=== PATIENT | female | born 1980 | race Two or more races ===

== ENCOUNTER 2020-04-13 10:53 | Emergency (ER) | payer BC ==
[~2020-04-13] VITALS: Ht 167.6 cm; Wt 90.0 kg
--- NOTE | 2020-04-13 11:24 | PHYS DOC ---
General Adult EDM: Chief Complaint: EYE PROBLEMS HPI: HPI: Patient is a 39 year old FEMALE who presents with right eye irritations since last night. Patient primary language is Swahili, does not speak any [place]an, facility phone general operations agent service used for HPI and physical examination. Patient reports right eye irritation that started last night, does not recall getting any foreign bodies into her eye, or any chemical exposures to her eye. Reports that the light hurts her eyes. Patient does not wear glasses or contacts. Patient states she does not have any drug allergies, states her only surgical history is an appendectomy when she was a young child, takes no medications, is generally healthy. Patient denies any exposure or concerns of the COVID-19 virus. Patient denies any fever or chills, nasal congestion, cough or shortness of breath. Patient denies any chest pain, any abdominal pain, nausea, vomiting, diarrhea. Patient denies any problems urinating. Patient denies back pain or pain in her joints. Is any skin rashes. Patient denies headaches, focal weaknesses, or sensory changes. Patient denies any swelling of her glands. Patient denies any recent depressions, anxieties, homicidal suicidal ideations. Review of Systems: Review of Systems: Constitutional: Denies fever or chills. Patient denies any exposure to her concerns of the COVID-19 virus. Eyes: Denies change in visual acuity. Reports right eye irritation, denies problems with left eye, reports the light hurts her eyes. HENT: Denies nasal congestion or sore throat. Respiratory: Denies cough or shortness of breath. Cardiovascular: Denies chest pain or edema. GI: Denies abdominal pain, nausea, vomiting, bloody stools or diarrhea. : Denies dysuria. Musculoskeletal: Denies back pain or joint pain. Integument: Denies rash. Neurologic: Denies headache, focal weakness or sensory changes. Endocrine: Denies polyuria or polydipsia. Lymphatic: Denies swollen glands. Psychiatric: Denies depression or anxiety. Denies homicidal or suicidal ideation. Heart Score: Risk Factors: Risk Factors: DM, Current or recent (<one month) smoker, HTN, HLP, family history of CAD, obesity. Risk Scores: Score 0 - 3: 2.5% MACE over next 6 weeks - Discharge Home Score 4 - 6: 20.3% MACE over next 6 weeks - Admit for Clinical Observation Score 7 - 10: 72.7% MACE over next 6 weeks - Early Invasive Strategies Family History: Family History: Patient reports both her mother and father are healthy. Current Medications: Patient states she does not take any prescription medications at home. Allergies: Allergies: Patient denies allergies to medications. Physical Exam: PE: Constitutional: Well developed, well nourished, no acute distress, non-toxic appearance. [] HENT: Normocephalic, atraumatic, bilateral external ears normal, oropharynx moist, no oral exudates, nose normal. [] Eyes: PERRLA, EOMI, conjunctiva normal, no discharge. [] Neck: Normal range of motion, no tenderness, supple, no stridor. [] Cardiovascular:Heart rate regular rhythm, no murmur [] Lungs & Thorax: Bilateral breath sounds clear to auscultation [] Abdomen: Bowel sounds normal, soft, no tenderness, no masses, no pulsatile masses. [] Skin: Warm, dry, no erythema, no rash. [] Back: No tenderness, no CVA tenderness. [] Extremities: No tenderness, no cyanosis, no clubbing, ROM intact, no edema. [] Neurologic: Alert and oriented X 3, normal motor function, normal sensory function, no focal deficits noted. [] Psychologic: Affect normal, judgement normal, mood normal. [] EKG: EKG: [] Radiology/Procedures: Radiology/Procedures: [] Course & Med Decision Making: Course & Med Decision Making Pertinent Labs and Imaging studies reviewed. (See chart for details) 39-year-old female patient speaks Swahili. Discharge instructions were reviewed with patient using facility general operations agent service. Patient had come to the emergency department complaining of her right thigh being reddened irritated and watering since last night. Examination of eye revealed a corneal abrasion at approximately 8:00 of the right eye iris most outer edge measuring approximately 2 mm by less than 0.5 mm, no foreign bodies noted during exam. No other abnormalities noted of the eye. No scleral edema. No abnormalities noted upon retinal exam. Visual acuity by nursing staff as follows: OD 20/40, OS 20/20, OU 20/20. Discussed with patient need to start antibiotic ointment, and to follow-up with ophthalmology this week. Patient's first dose of erythromycin ointment was given in the ER to instruct patient how to apply antibiotic ointment to eye. Patient's intraocular pressure were measured with facility Joe-Pen, noting each eye at 14 mmHg. Patient gave verbal understanding of home care, return to ER concerns and precautions, to follow-up with shuttle inspector soon, and use of antibiotic ointment and eye. Patient had no further questions or concerns, patient discharged home. Dragon Disclaimer: Dragon Disclaimer: This electronic medical record was generated, in whole or in part, using a voice recognition dictation system. Departure Departure Impression: Primary Impression: Corneal abrasion, right Qualified Codes: S05.01XA - Injury of conjunctiva and corneal abrasion without foreign body, right eye, initial encounter Disposition: HOME, SELF-CARE Condition: GOOD Referrals: NO PCP (PCP) Isabell TYLER MD Patient Instructions: Eye - Corneal Abrasion Additional Instructions: Please apply the antibiotic ointment to the right eye 4 times a day for the next 5 days, please follow-up with the eye doctor this week, preferably by Monday. Please return to emergency department for increased eye pain, or decreased vision, or other concerns. Scripts Hydrocodone/Apap 5-325 (NORCO 5-325 TABLET) 1 Each Tablet 1 TAB PO PRN Q6HRS PRN for PAIN, #10 TAB 0 Refills Prov: MARI PHILIP APRN 04/13/20 Ibuprofen (IBUPROFEN) 600 Mg Tablet 600 MG PO PRN Q6HRS PRN for INFLAMMATION, #14 TAB 0 Refills Prov: MARI PHILIP APRN 04/13/20 Erythromycin Base (Erythromycin) 1 Gm Oint...g. 1 GM OP QID for CORNEAL ABRASION, #1 MISC 0 Refills APPLY A 0.5 INCH RIBBON TO INNER LOWER EYELID 4 TIMES A DAY FOR THE NEXT 5 DAYS. Prov: MARI PHILIP APRN 04/13/20 Justicifation of Admission Dx: Justifications for Admission: Justification of Admission Dx: N/A MARI PHILIP APRN Apr 13, 2020 11:24
[2020-04-13] MEDS ORDERED: FLUORESCEIN OPHTH TEST STRIP. OD ONE (11:30)
[2020-04-13] MEDS ORDERED: TETRACAINE 0.5% OPHTH SOLUTION 4ML BOTTLE. OD ONE (11:30)
[2020-04-13] MEDS ORDERED: EYE-STREAM OPHTH SOLUTION 120 ML BOTTLE. OD ONE (11:45)
[2020-04-13] MEDS ORDERED: ERYTHROMYCIN 0.5% OPHTH OINTMENT 1GM TUBE. OD ONE (12:00)
[2020-04-13] MEDS ORDERED: IBUP-1007 PO (12:25)
[2020-04-13] MEDS ORDERED: ERYT1OIN6 OP (12:25)
[2020-04-13] MEDS ORDERED: HYDR-3164 PO (12:25)
[2020-04-13 12:34] VITALS: BP 155/103
[2020-04-13] MEDS ORDERED: HYDROcodone/APAP 5/325MG 1 TAB TABLET PO ONE (12:45)
== END 2020-04-13 12:45 | disposition home or self-care (01) ==
LOC: ER 10:53
DX: S05.01XA Injury of conjunctiva and corneal abrasion without foreign body, right eye, initial encounter (principal); X58.XXXA Exposure to other specified factors, initial encounter; Y93.89 Activity, other specified; Y92.89 Other specified places as the place of occurrence of the external cause; Y99.8 Other external cause status
CPT/HCPCS: 99283

== ENCOUNTER 2020-07-16 22:24 | Emergency (ER) | payer BC ==
[~2020-07-16] VITALS: Ht 165.1 cm; Wt 48.0 kg
[~2020-07-16 22:24] MED LIST: ERYT1OIN6 OP; HYDR-3164 PO; IBUP-1007 PO
[2020-07-16 23:46] VITALS: BP 164/97
[2020-07-16 23:46] LABS: COLOR,URINE RED
[2020-07-16 23:49] LABS: CLARITY,URINE BLOODY
[2020-07-16 23:50] LABS: RBC,URINE TNTC /HPF (0-2)
[2020-07-16 23:51] LABS: BACTERIA,URINE 0 /HPF (0-FEW); WBC,URINE 20-40 /HPF (0-4)
[2020-07-17] MEDS ORDERED: PHEN-318 PO (00:05)
[2020-07-17] MEDS ORDERED: NITR100C62 PO (00:05)
--- NOTE | 2020-07-17 00:06 | PHYS DOC ---
Past Medical History Past Medical History: No Pertinent History Past Surgical History: Appendectomy Smoking Status: Never Smoker Alcohol Use: None General Adult EDM: Chief Complaint: ABDOMINAL PAIN HPI: HPI: Patient is a 40 year old [female who is currently on her menstrual cycle presents with a chief complaint of suprapubic discomfort when she urinates. Patient states that has been ongoing for 3 days. Review of Systems: Review of Systems: Constitutional: Denies fever or chills. [] Eyes: Denies change in visual acuity. [] HENT: Denies nasal congestion or sore throat. [] Respiratory: Denies cough or shortness of breath. [] Cardiovascular: Denies chest pain or edema. [] GI: Denies abdominal pain, nausea, vomiting, bloody stools or diarrhea. [] : Positive dysuria. [] Musculoskeletal: Denies back pain or joint pain. [] Integument: Denies rash. [] Neurologic: Denies headache, focal weakness or sensory changes. [] Endocrine: Denies polyuria or polydipsia. [] Lymphatic: Denies swollen glands. [] Psychiatric: Denies depression or anxiety. [] Heart Score: Risk Factors: Risk Factors: DM, Current or recent (<one month) smoker, HTN, HLP, family history of CAD, obesity. Risk Scores: Score 0 - 3: 2.5% MACE over next 6 weeks - Discharge Home Score 4 - 6: 20.3% MACE over next 6 weeks - Admit for Clinical Observation Score 7 - 10: 72.7% MACE over next 6 weeks - Early Invasive Strategies Allergies: Allergies: Allergies Coded Allergies Type Severity Reaction Last Updated Verified No Known Drug Allergies 04/13/20 No Physical Exam: PE: Constitutional: Well developed, well nourished, no acute distress, non-toxic appearance. [] HENT: Normocephalic, atraumatic, bilateral external ears normal, oropharynx moist, no oral exudates, nose normal. [] Eyes: PERRLA, EOMI, conjunctiva normal, no discharge. [] Neck: Normal range of motion, no tenderness, supple, no stridor. [] Cardiovascular:Heart rate regular rhythm, no murmur [] Lungs & Thorax: Bilateral breath sounds clear to auscultation [] Abdomen: Bowel sounds normal, soft, no tenderness, no masses, no pulsatile masses. [] Skin: Warm, dry, no erythema, no rash. [] Back: No tenderness, no CVA tenderness. [] Extremities: No tenderness, no cyanosis, no clubbing, ROM intact, no edema. [] Neurologic: Alert and oriented X 3, normal motor function, normal sensory function, no focal deficits noted. [] Psychologic: Affect normal, judgement normal, mood normal. [] Current Patient Data: Labs: Laboratory Tests Test 07/16/20 22:50 Urine Collection Type Unknown Urine Color Red Urine Clarity Bloody Urine pH (<5.0-8.0) Urine Specific [place] 1.015 (1.000-1.030) Urine Protein mg/dL (NEG-TRACE) Urine Glucose (UA) mg/dL (NEG) Urine Ketones (Stick) mg/dL (NEG) Urine Blood (NEG) Urine Nitrite (NEG) Urine Bilirubin (NEG) Urine Urobilinogen Dipstick mg/dL (0.2 mg/dL) Urine Leukocyte Esterase (NEG) Urine RBC Tntc /HPF (0-2) Urine WBC 20-40 /HPF (0-4) Urine Squamous Epithelial Cells Few /LPF Urine Bacteria 0 /HPF (0-FEW) Urine Mucus Mod /LPF Vital Signs: Vital Signs Date Time Temp Pulse Resp B/P (MAP) Pulse Ox O2 Delivery O2 Flow Rate FiO2 07/16/20 22:55 98.1 87 18 148/101 (117) 98 Room Air 98.1 EKG: EKG: [] Radiology/Procedures: Radiology/Procedures: [] Course & Med Decision Making: Course & Med Decision Making Pertinent Labs and Imaging studies reviewed. (See chart for details) [] Patient is currently on her. Urine significant amount of blood unable to a nalyze in the lab. Will treat patient empirically. Patient was treated with Pyridium and Macrobid in the emergency department. She was discharged home with prescriptions for both. Felix Disclaimer: Felix Disclaimer: This electronic medical record was generated, in whole or in part, using a voice recognition dictation system. Departure Departure Impression: Primary Impression: Dysuria Disposition: 01 DC HOME SELF CARE/HOMELESS Condition: STABLE Referrals: NO PCP (PCP) Patient Instructions: Dysuria Scripts Phenazopyridine Hcl (PYRIDIUM) 200 Mg Tablet 1 TAB PO TID for urinary discomfort for 3 Days, #9 TAB 0 Refills Prov: XAVI,EMERSON I DO 07/17/20 Nitrofurantoin Monohyd/M-Cryst (MACROBID 100 MG CAPSULE) 100 Mg Capsule 1 CAP PO BID for 5 Days, #10 CAP 0 Refills Prov: EMERSON HURLEY DO 07/17/20 EMERSON HURLEY DO Jul 17, 2020 00:05
[2020-07-17] MEDS ORDERED: PHENAZOPYRIDINE 200 MG TABLET. PO ONE (00:15)
[2020-07-17] MEDS ORDERED: NITROFURANTOIN MONOHYD/M-CRYST 100 MG CAPSULE. PO ONE (00:15)
== END 2020-07-17 00:18 | disposition home or self-care (01) ==
LOC: ER 22:24
DX: R30.0 Dysuria (principal); R10.30 Lower abdominal pain, unspecified; Z90.89 Acquired absence of other organs
CPT/HCPCS: 81001; 87086; 99283

== ENCOUNTER 2020-12-16 21:33 | Emergency (ER) | payer BC ==
[~2020-12-16] VITALS: Ht 165.1 cm; Wt 63.6 kg
[~2020-12-16 21:33] MED LIST changes: +NITR100C62 PO; +PHEN-318 PO
[2020-12-16 23:05] LABS: BILIRUBIN,URINE NEGATIVE (NEG); CLARITY,URINE CLEAR; COLOR,URINE YELLOW; NITRITE,URINE NEGATIVE (NEG); PROTEIN,URINE NEGATIVE (NEG-TRACE); UROBILINOGEN,URINE 0.2 mg/dL (0.2 mg/dL)
--- NOTE | 2020-12-16 23:07 | RAD ---
Single view chest dated 12/16/2020: No comparison available. Clinical Indication: Dizziness. Findings: Single upright portable exam of the chest was performed. Heart size and mediastinal contours are with in normal limits given technique. The lungs are clear without evidence of focal consolidation. Vascul ar interstitium is within normal limits. Impression:: Negative portable chest. Electronically signed by: Bipin Freitas MD (12/16/2020 11:04 PM) [facility]
[2020-12-16 23:11] LABS: BACTERIA,URINE FEW /HPF (0-FEW); RBC,URINE OCC /HPF (0-2); WBC,URINE OCC /HPF (0-4)
--- NOTE | 2020-12-16 23:19 | RAD ---
CT head without contrast dated 12/16/2020. No comparison available. Clinical data indication: Dizziness. TECHNIQUE: Contiguous axial imaging the head was performed from skull base to vertex. No contrast administered. One or more of the following individualized dose reduction techniques were utilized for this examinat ion: 1. Automated exposure control 2. Adjustment of the mA and/or kV according to patient size 3. Use of iterative reconstruction technique. FINDINGS: Ventricles and sulci are mildly prominent for age. No midline shift or mass effect. Brain parenchyma is of normal attenuation. No hemorrhage or extra-axial collection. Posterior fossa and brainstem unre markable. Visualized paranasal sinuses and mastoid air cells are clear. No apparent calvarial abnormality. IMPRESSION: No evidence of acute intracranial abnormality. Electronically signed by: Bipin Freitas MD (12/16/2020 11:16 PM) RONNY
[2020-12-16 23:24] LABS: BASO % 0 % (0-3); EOS % 1 % (0-3); HEMATOCRIT 39.7 % (36.0-47.0); HEMOGLOBIN 13.5 g/dL (12.0-15.5); LYMPH # 1.8 x10^3/uL (1.0-4.8); LYMPH % 42 % (24-48); MEAN CORPUSCULAR HEMOGLOBIN 31 pg (25-35); MEAN CORPUSCULAR HGB CONC 34 g/dL (31-37); MEAN CORPUSCULAR VOLUME 90 fL (79-100); MONO # 0.4 x10^3/uL (0.0-1.1); MONO % 10 % (0-9); NEUT % 47 % (31-73); PLATELET COUNT 193 x10^3/uL (140-400); RED BLOOD COUNT 4.41 x10^6/uL (3.50-5.40); RED CELL DISTRIBUTION WIDTH 13.9 % (11.5-14.5); WHITE BLOOD COUNT 4.3 x10^3/uL (4.0-11.0)
[2020-12-16 23:34] LABS: CALCIUM 8.7 mg/dL (8.5-10.1); CREATININE 0.8 mg/dL (0.6-1.0); GFR 79.4; POTASSIUM 4.2 mmol/L (3.5-5.1)
[2020-12-16 23:39] LABS: ALBUMIN 3.3 g/dL (3.4-5.0); ALBUMIN/GLOBULIN RATIO 1.1 (1.0-1.7); TOTAL BILIRUBIN 0.6 mg/dL (0.2-1.0); TOTAL PROTEIN 6.4 g/dL (6.4-8.2)
[2020-12-17] MEDS ORDERED: MECLIZINE HCL 12.5 MG TABLET. PO ONE (00:30)
[2020-12-17] MEDS ORDERED: hydroCHLOROthiazide 12.5 MG CAPSULE PO ONE (00:30)
[2020-12-17 00:50] VITALS: BP 144/97
[2020-12-17] MEDS ORDERED: MECL-75 PO (00:54)
--- NOTE | 2020-12-17 00:55 | PHYS DOC ---
Past Medical History Past Medical History: No Pertinent History Past Surgical History: Appendectomy Smoking Status: Never Smoker Alcohol Use: None General Adult EDM: Chief Complaint: DIZZY/LIGHT HEADED HPI: HPI: Patient is a 40yo female presenting for dizziness. This started earlier this morning after waking up. No trauma, inciting event or ingestion. Nothing known makes better, rolling over/turning head makes worse. She is in no pain. Timing of symptoms has been intermittent since onset. No fever, chills, vision changes, cp, shob, ap, dysuria, motor or sensory function changes, no neuro deficits Review of Systems: Review of Systems: Fourteen body systems of review of systems have been reviewed. See HPI for pertinent positives and negative responses, other marcelino all other systems are negative, non-pertinent or non-contributory Heart Score: C/O Chest Pain: No HEART Score for Chest Pain: HEART Score for Chest Pain Response (Comments) Value History Slighlty/Non-Suspicious 0 ECG Normal 0 Risk Factors No Risk Factors 0 Total 0 Risk Factors: Risk Factors: DM, Current or recent (<one month) smoker, HTN, HLP, family history of CAD, obesity. Risk Scores: Score 0 - 3: 2.5% MACE over next 6 weeks - Discharge Home Score 4 - 6: 20.3% MACE over next 6 weeks - Admit for Clinical Observation Score 7 - 10: 72.7% MACE over next 6 weeks - Early Invasive Strategies Current Medications: Current Medications Medications (Trade) Dose Ordered Sig/Luigi Start Time Stop Time Status Last Admin Dose Admin Hydrochlorothiazide (Microzide) 12.5 mg 1X ONCE 12/17/20 00:30 12/17/20 00:31 DC 12/17/20 00:10 12.5 MG Meclizine HCl (Antivert) 12.5 mg 1X ONCE 12/17/20 00:30 12/17/20 00:31 DC 12/17/20 00:10 12.5 MG Allergies: Allergies: Allergies Coded Allergies Type Severity Reaction Last Updated Verified No Known Drug Allergies 04/13/20 No Physical Exam: PE: General: Appears well, non toxic, and comfortable Skin: Warm, dry. Normal for ethnicity. HEENT: Atraumatic. PERRLA. Moist mucous membranes. Neck: Trachea midline. Normal ROM. Respiratory: Normal WOB. CTAB w/o w/r/r. No tachypnea. Cardiovascular: Regular rate and rhythm. Normal peripheral perfusion. No edema. Abdomen: Soft. Non tender. No distension. Back: Normal ROM. Musculoskeletal: No swelling or deformity. Neuro: Alert and oriented x 4. MAEE. GCS 15. Normal Filomena. CN II-XII intact. Normal strength and sensation. Normal speech. Gait unremarkable. No carotid bruits, turning head worsens symptoms Psych: Normal affect and mood. Current Patient Data: Labs: Laboratory Tests Test 12/16/20 21:39 12/16/20 21:41 12/16/20 23:15 Urine Collection Type Unknown Urine Color Yellow Urine Clarity Clear Urine pH 6.0 (<5.0-8.0) Urine Specific [place] 1.015 (1.000-1.030) Urine Protein Negative mg/dL (NEG-TRACE) Urine Glucose (UA) Negative mg/dL (NEG) Urine Ketones (Stick) Negative mg/dL (NEG) Urine Blood Negative (NEG) Urine Nitrite Negative (NEG) Urine Bilirubin Negative (NEG) Urine Urobilinogen Dipstick 0.2 mg/dL (0.2 mg/dL) Urine Leukocyte Esterase Negative (NEG) Urine RBC Occ /HPF (0-2) Urine WBC Occ /HPF (0-4) Urine Squamous Epithelial Cells Few /LPF Urine Bacteria Few /HPF (0-FEW) POC Urine HCG, Qualitative Hcg negative (Negative) White Blood Count 4.3 x10^3/uL (4.0-11.0) Red Blood Count 4.41 x10^6/uL (3.50-5.40) Hemoglobin 13.5 g/dL (12.0-15.5) Hematocrit 39.7 % (36.0-47.0) Mean Corpuscular Volume 90 fL (79-100) Mean Corpuscular Hemoglobin 31 pg (25-35) Mean Corpuscular Hemoglobin Concent 34 g/dL (31-37) Red Cell Distribution Width 13.9 % (11.5-14.5) Platelet Count 193 x10^3/uL (140-400) Neutrophils (%) (Auto) 47 % (31-73) Lymphocytes (%) (Auto) 42 % (24-48) Monocytes (%) (Auto) 10 % (0-9) H Eosinophils (%) (Auto) 1 % (0-3) Basophils (%) (Auto) 0 % (0-3) Neutrophils # (Auto) 2.0 x10^3/uL (1.8-7.7) Lymphocytes # (Auto) 1.8 x10^3/uL (1.0-4.8) Monocytes # (Auto) 0.4 x10^3/uL (0.0-1.1) Eosinophils # (Auto) 0.0 x10^3/uL (0.0-0.7) Basophils # (Auto) 0.0 x10^3/uL (0.0-0.2) Sodium Level 143 mmol/L (136-145) Potassium Level 4.2 mmol/L (3.5-5.1) Chloride Level 105 mmol/L (98-107) Carbon Dioxide Level 29 mmol/L (21-32) Anion Gap 9 (6-14) Blood Urea Nitrogen 10 mg/dL (7-20) Creatinine 0.8 mg/dL (0.6-1.0) Estimated GFR (Cockcroft-Gault) 79.4 BUN/Creatinine Ratio 13 (6-20) Glucose Level 108 mg/dL (70-99) H Calcium Level 8.7 mg/dL (8.5-10.1) Total Bilirubin 0.6 mg/dL (0.2-1.0) Aspartate Amino Transferase (AST) 24 U/L (15-37) Alanine Aminotransferase (ALT) 30 U/L (14-59) Alkaline Phosphatase 34 U/L (46-116) L Troponin I Quantitative < 0.017 ng/mL (0.000-0.055) Total Protein 6.4 g/dL (6.4-8.2) Albumin 3.3 g/dL (3.4-5.0) L Albumin/Globulin Ratio 1.1 (1.0-1.7) Laboratory Tests 12/16/20 23:15 Laboratory Tests 12/16/20 23:15 Vital Signs: Vital Signs Date Time Temp Pulse Resp B/P (MAP) Pulse Ox O2 Delivery O2 Flow Rate FiO2 12/16/20 22:10 98.3 80 18 180/110 (133) 99 Room Air 98.3 EKG: EKG: EKG ordered and interpreted by myself at 2245 hrs. as sinus rhythm at 76 bpm, unremarkable intervals, no axis deviation, no acute ischemic findings, no STEMI Radiology/Procedures: Radiology/Procedures: CT head without contrast dated 12/16/2020. No comparison available. Clinical data indication: Dizziness. TECHNIQUE: Contiguous axial imaging the head was performed from skull base to vertex. No contrast administered. One or more of the following individualized dose reduction techniques were utilized for this examination: 1. Automated exposure control 2. Adjustment of the mA and/or kV according to patient size 3. Use of iterative reconstruction technique. FINDINGS: Ventricles and sulci are mildly prominent for age. No midline shift or mass e ffect. Brain parenchyma is of normal attenuation. No hemorrhage or extra-axial collection. Posterior fossa and brainstem unremarkable. Visualized paranasal sinuses and mastoid air cells are clear. No apparent calvarial abnormality. IMPRESSION: No evidence of acute intracranial abnormality. Electronically signed by: Bipin Freitas MD (12/16/2020 11:16 PM) [facility] //////////////// Single view chest dated 12/16/2020: No comparison available. Clinical Indication: Dizziness. Findings: Single upright portable exam of the chest was performed. Heart size and mediastinal contours are within normal limits given technique. The lungs are clear without evidence of focal consolidation. Vascular interstitium is within normal limits. Impression:: Negative portable chest. Electronically signed by: Bipin Freitas MD (12/16/2020 11:04 PM) [facility] Course & Med Decision Making: Course & Med Decision Making Hypertensive otherwise VSS. ER workup grossly non-concerning. Patient responded to Meclizine and reported feeling "much better" after taking it. I suspect vertigo. I did disclose this might be an acute presentation of more concerning pathology. Discussed hypertensive reading with patient. PO HCTZ given. Patient doesn't have history of HTN. Advised her to keep BP log and review this with PCP at follow-up as elevated BP could be contributory to symptoms Strict return precautions discussed with good understanding, all questions and concerns addressed prior to departure Felix Disclaimer: Felix Disclaimer: This electronic medical record was generated, in whole or in part, using a voice recognition dictation system. Departure Departure Impression: Primary Impression: Dizziness Additional Impression: Elevated blood pressure reading without diagnosis of hypertension Disposition: 01 DC HOME SELF CARE/HOMELESS Condition: IMPROVED Referrals: NO PCP (PCP) Patient Instructions: Dizziness, Form - Blood Pressure Record Sheet, How to Take Your Blood Pressure, Econ-wz-Sott Additional Instructions: As discussed prior to ER departure, your work-up here was grossly unremarkable. Your blood pressure was elevated and you were given a one-time medication by mouth to address this. Please use attached resources to keep a daily blood pressure log to present to your primary care physician for review. This might be a new diagnosis and the elevated blood pressure might be contributory to your dizziness. In addition, you were given meclizine which is an antidizziness medication. Please use this as prescribed. This should not be used long-term and so, please follow-up with your primary care physician to review continued need for this. If any concerning signs or symptoms present prior to outpatient follow-up please do not hesitate to come back for repeat evaluation. It was a pleasure to take care of you and I am glad you are feeling better prior to departure Scripts Meclizine Hcl (MECLIZINE HCL) 25 Mg Tablet 25 MG PO PRN TID PRN for DIZZINESS, #30 dizziness Prov: SEFERINO MCCARTNEY DO 12/17/20 SEFERINO MCCARTNEY DO Dec 17, 2020 00:55
--- NOTE | 2020-12-17 04:06 | EKG ---
[facility] [address] [place] [address] Test Date: 2020-12-16 Test Time: 22:38:24 Pat Name: GODFREY ADEN Department: Room: Gender: F Pets Salesperson: : 1980 Requested By: ESFERINO MCCARTNEY Order Number: [id number] Reading MD: Measurements Intervals [place] Rate: 76 P: 56 AR: 156 QRS: 21 QRSD: 84 T: 27 QT: 376 QTc: 427 Interpretive Statements SINUS RHYTHM NORMAL ECG RI6.02 No previous ECG available for comparison
== END 2020-12-17 01:00 | disposition home or self-care (01) ==
LOC: ER 21:33
DX: R03.0 Elevated blood-pressure reading, without diagnosis of hypertension (principal); R42 Dizziness and giddiness; Z90.89 Acquired absence of other organs
CPT/HCPCS: 36415; 70450; 71045; 80053; 81001; 81025; 84484; 85025; 93005; 99285; J8597